=== PATIENT | female | born 1970 ===

== ENCOUNTER 2018-02-01 08:42 | Emergency (ER) | payer SELFPAY ==
[2018-02-01 08:51] VITALS: BP 125/80; PULSE 64; RESP 18; TEMP 97.6; O2SAT 100
[2018-02-01] MEDS ORDERED: Lidocaine 5% Patch TD STA (09:26)
[2018-02-01] MEDS ORDERED: Lidocaine 5% Patch TD ONE (09:33)
--- NOTE | 2018-02-01 10:43 | C.PDOC ---
History Of Present Illness 47 y/o female presents to the ER complaining of left buttock pain which has been going on intermittently for the past few years becoming worse over the past 2 weeks. Patient states that the pain radiates down the left leg. Patient rates the pain 8/10. She notes that she has been taking Motrin with minimal relief. Time Seen by Provider: 02/01/18 09:21 Chief Complaint (Nursing): Back Pain History Per: Patient History/Exam Limitations: no limitations Onset/Duration Of Symptoms: Days Current Symptoms Are (Timing): Still Present Severity: Moderate Past Medical History Reviewed: Historical Data, Nursing Documentation, Vital Signs Vital Signs: Last Vital Signs Temp 97.6 F 02/01/18 08:48 Pulse 64 02/01/18 08:48 Resp 18 02/01/18 08:48 BP 125/80 02/01/18 08:48 Pulse Ox 100 02/01/18 08:48 - Medical History PMH: Anemia, Back Problems Other Surgeries: Hx of surgeries - [facility] Procedures D & C NEC (02/15/13) LAPAROSCOP LYSIS-PERITONEAL ADHES (02/15/13) LAPAROSCOP REMOVE OVARIES/TUBES (02/15/13) LAPAROSCOPIC TOTAL ABDOMINAL HYSTERECTOMY (02/15/13) PACKED CELL TRANSFUSION (02/15/13) Family History: States: No Known Family Hx - Social History Hx Alcohol Use: No Hx Substance Use: No - Immunization History Hx Tetanus Toxoid Vaccination: No Hx Influenza Vaccination: No Hx Pneumococcal Vaccination: No Review Of Systems Except As Marked, All Systems Reviewed And Found Negative. Musculoskeletal: Positive for: Other (hip pain) Neurological: Negative for: Weakness, Numbness Physical Exam - Physical Exam Appears: Non-toxic, No Acute Distress Skin: Normal Color, Warm, Dry Head: Atraumatic, Normacephalic Eye(s): bilateral: Normal Inspection Nose: Normal Oral Mucosa: Moist Neck: Supple Chest: Symmetrical Extremity: Normal ROM, Tenderness (tenderness to left buttock), No Swelling Neurological/Psych: Oriented x3, Normal Speech ED Course And Treatment O2 Sat by Pulse Oximetry: 100 (RA) Pulse Ox Interpretation: Normal Medical Decision Making Medical Decision Making: Plan: --Motrin PO --Tylenol PO --Prednisone PO --Lidocaine Patch Disposition Counseled Patient/Family Regarding: Diagnosis, Need For Followup, Rx Given - Disposition Referrals: [facility] [Outside] Disposition: HOME/ ROUTINE Disposition Time: 10:43 Condition: STABLE Prescriptions: Ibuprofen [Motrin] 600 mg PO TID #15 tab Lidocaine 5% [Lidoderm] 1 ea TD DAILY #2 patch Prednisone [Deltasone] 60 mg PO DAILY #12 tablet Instructions: Sciatica Forms: Gen Discharge Inst Nauruan, [facility] (Nauruan) - POA Present On Arrival: None - Clinical Impression Clinical Impression: Sciatica - Scribe Statement The provider has reviewed the documentation as recorded by the Jake Caldera Provider Attestation: All medical record entries made by the Jake were at my direction and personally dictated by me. I have reviewed the chart and agree that the record accurately reflects my personal performance of the history, physical exam, medical decision making, and the department course for this patient. I have also personally directed, reviewed, and agree with the discharge instructions and disposition.
== END 2018-02-01 10:49 | disposition home or self-care (01) ==
LOC: C.ER 08:42
DX: M54.32 Sciatica, left side (principal)